=== PATIENT | male | born 2000 | race Caucasian/White ===

== ENCOUNTER 2020-11-28 10:24 | Emergency (ER) | payer OTHER ==
[~2020-11-28] VITALS: Ht 177.8 cm; Wt 70.9 kg
[2020-11-28 10:36] VITALS: BP 115/71
== END 2020-11-28 12:10 | disposition left against medical advice (07) ==
LOC: ER 10:24
DX: Z00.8 Encounter for other general examination (principal); Z53.21 Procedure and treatment not carried out due to patient leaving prior to being seen by health care provider